=== PATIENT | male | born 1960 | race Caucasian/White ===

== ENCOUNTER 2016-09-15 10:12 | Day surgery (SDC) | payer OTHER ==
[~2016-09-15 10:12] MED LIST: KETOROLAC TROMETHAMINE 0.45% 4 DROP/0.4 ML DROPERETTE OD PRN
[2016-09-15] MEDS ORDERED: EPINEPHRINE INJ/PF 1 MG/1 ML AMPULE ONE ×2 (10:16→10:57)
[2016-09-15] MEDS ORDERED: LIDOCAINE 1% INJ-PF (10 MG/ML) 30 ML SDV ONE (10:17)
[2016-09-15] MEDS ORDERED: CHONDR SU A NA/HYALUR INTRAOC KIT (SURGICARE) ONE (10:17)
[2016-09-15] MEDS ORDERED: BUPIVACAINE HCL 0.75% INJ/PF (7.5 MG/1 ML) 10 ML SDV ONE (10:22)
[2016-09-15] MEDS ORDERED: HYALURONIDASE INJ 150 UNIT/1 ML VIAL ONE (10:23)
[2016-09-15] MEDS ORDERED: LIDOCAINE 2% INJ-PF (20 MG/ML) 10 ML AMPUL ONE (10:23)
[2016-09-15] MEDS: TETRACAINE HCL 0.5% OPH SOLN 2 ML OD PRN ×3 (10:33→11:23)
[2016-09-15] MEDS: TROPICAMIDE 1% OPH SOLN 3 ML OD PRN ×3 (10:34→10:52)
[2016-09-15] MEDS: CYCLOPENTOLATE 0.2%/PHENYLEPHRINE 1% OPH SOLN 2 ML OD PRN ×3 (10:35→10:53)
[2016-09-15] MEDS: BESIFLOXACIN HCL 0.6% OPH SUSP 5 ML BOTTLE OP PRN ×4 (10:36→12:50)
[2016-09-15] MEDS ORDERED: MIDAZOLAM 2 MG/2 ML INJ ONE (11:21)
[2016-09-15] MEDS ORDERED: FENTANYL CITRATE INJ/PF 100 MCG/2 ML AMPUL ONE (11:21)
[2016-09-15] MEDS ORDERED: PHENYLEPHRINE/KETOROLAC 1%-0.3% 4 ML VIAL ONE ×2 (11:32→11:36)
[2016-09-15] MEDS ORDERED: CHONDR SU A NA/HYALUR SOD 0.5 ML DISP.SYRIN ONE (11:52)
[2016-09-15] MEDS: TOBRAMYCIN SULFATE/DEXAMETH OPH OINTMENT 3.5 GM ONE ×2 (12:05→12:50)
--- NOTE | 2016-09-15 13:38 | [facility] OPERATIVE REPORT E ---
[facility] Operative Report NAME: KASIA VO AGE: 55Y DATE OF SURGERY: 09/15/2016 ROOM: PREOPERATIVE DIAGNOSES: 1. Cataract, right eye. 2. Miosis. POSTOPERATIVE DIAGNOSES: 1. Cataract, right eye. 2. Miosis. PROCEDURE: Complex cataract extraction with use of a Malyugin ring due to a very miotic pupil. SURGEON: JESSE PRIETO M.D. ANESTHESIA: Retrobulbar block of 2% lidocaine mixed with 0.7% Marcaine in a 50/50 mixture with Vitrase. PROCEDURE: After obtaining appropriate consent, the patient's right eye was prepped and draped in sterile fashion as well as the surgeon in a sterile manner and cataract surgery was started. First a paracentesis blade was used to make a small side-port incision. Viscoelastic was used to inflate the anterior chamber. Next a 2.4 mm incision was made with the paracentesis blade. A continuous capsulorrhexis incision was made using a cystotome and Utrata forceps. Following this hydrodissection was carried out to make the lens fully loose and mobile and it was rotated 90 degrees. Following this, a irpolq-hxo-kpwxyet technique was used to phacoemulsify the lens with a CDE of 3.83. The remaining cortex was removed with irrigation/aspiration. Provisc was instilled into the capsular bag to inflate the bag. A SN60WF, 19.5 diopter lens was placed. The remaining viscoelastic material was removed with irrigation/aspiration. Following this, a 10-0 nylon suture was used to close the incision and it was found to be watertight. Vigamox was instilled in the eye and a protective shield was placed over the eye. The patient returned to the postoperative recovery in stable condition. Prior to making the capsulorrhexis, a Malyugin ring was inserted due to a very miotic pupil. This was removed at the end of the case. DICTATING PHYSICIAN: JESSE PRIETO M.D. [id number] PHY#: [id number] ID: [id number] JOB#: [id number] ACCT: [id number] cc:JESSE PRIETO M.D. >
--- NOTE | 2016-09-15 13:39 | [facility] DISCHARGE SUMMARY E ---
[facility] Discharge Summary NAME: KASIA VO AGE: 55Y ADMITTED: 09/15/2016 DISCHARGED: 09/15/2016 HOSPITAL COURSE: This is a 55-year-old male who underwent complex cataract extraction with the use of a Malyugin ring. DIAGNOSIS: 1. Cataract, right eye. 2. Pupil miosis of the right eye. INDICATIONS: He underwent surgery because he was having difficulty driving at night due to decreased vision. DISCHARGE INSTRUCTIONS: He should be on a regular diet. No bending at his waist, no heavy lifting. We placed TobraDex ointment in the eye and a pressure patch, and he is leaving the pressure patch on until we see him in the office tomorrow. He will call with any problems. DICTATING PHYSICIAN: JESSE PRIETO M.D. [id number] PHY#: [id number] ID: [id number] JOB#: [id number] ACCT: [id number] cc:JESSE PRIETO M.D. >
== END 2016-09-15 12:46 | disposition home or self-care (01) ==
LOC: SC 10:12
PROVIDERS: ATTEND Internal Medicine
PROC: 08RJ3JZ Replacement of Right Lens with Synthetic Substitute, Percutaneous Approach (ICD-10-PCS; principal; 2016-09-15 11:00)
DX: H25.11 Age-related nuclear cataract, right eye (principal); H57.03 Miosis; Z96.1 Presence of intraocular lens; I10 Essential (primary) hypertension; Z79.899 Other long term (current) drug therapy
CPT/HCPCS: 66982; V2632; J2250; J3490 ×6; J0171; J3010; J3470; 142; C9447

== ENCOUNTER 2016-11-09 04:51 | Emergency (ER) | payer OTHER ==
--- NOTE | 2016-11-09 08:19 | ER Document Report ---
ED Extremity Problem, Upper - General Time seen by provider: 08:14 Mode of Arrival: Ambulatory Information source: Patient TRAVEL OUTSIDE OF THE [place] IN LAST 30 DAYS: No - HPI Patient complains to provider of: Pain, Left Onset: Other - see HPI note <ANJEL WOODY - Last Filed: 11/09/16 08:28> <HALRENAN - Last Filed: 11/09/16 15:06> - General Chief Complaint: Shoulder Pain Stated Complaint: LEFT ARM NUMBNESS Notes: Patient is a 55-year-old male presenting to the emergency department with complaints of shoulder pain. Patient states that he has had some pain in his left shoulder, trapezius muscles, and down his left arm. Patient states he has some diabetes and tingling into his elbow, index finger and thumb. Patient states he has had this pain for her about 2 weeks and has progressed in the last week. Patient has seen a chiropractor for this and was advised to get an MRI. Patient was also seen at urgent care for the same symptoms on Monday. Patient has been taking prednisone. Patient denies any injury. Patient states he has been doing light work at his job. Patient states that his pain was relieved when he got a shot of tramadol from the urgent care on Monday. However, patient's pain has returned. Patient is concerned about a metal plate in his jaw from the previous jaw surgery in 1985 and how this will affect his MRI. Patient requests pain medication since he does not want to have to keep taking off work for his pain. Patient has no known allergies. (ANJEL WODOY) - Related Data Allergies/Adverse Reactions: No Known Allergies Allergy (Verified 08/25/16 09:57) Past Medical History - General Information source: Patient - Social History Smoking Status: Never Smoker Cigarette use (# per day): No Chew tobacco use (# tins/day): No Frequency of alcohol use: None Drug Abuse: None Family History: None Patient has suicidal ideation: No Patient has homicidal ideation: No - Past Medical History Cardiac Medical History: Reports: Hx Hypercholesterolemia, Hx Hypertension Past Surgical History: Reports: Other - jaw sx '86 <ANJEL WOODY - Last Filed: 11/09/16 08:28> Review of Systems - Review of Systems Constitutional: No symptoms reported EENT: No symptoms reported Cardiovascular: No symptoms reported Respiratory: No symptoms reported Gastrointestinal: No symptoms reported Genitourinary: No symptoms reported Male Genitourinary: No symptoms reported Musculoskeletal: See HPI Skin: No symptoms reported Hematologic/Lymphatic: No symptoms reported Neurological/Psychological: See HPI, Numbness, Tingling -: Yes All other systems reviewed and negative <ANJEL WOODY - Last Filed: 11/09/16 08:28> Physical Exam - Vital signs Interpretation: Normal - General General appearance: Appears well, Alert - HEENT Head: Normocephalic, Atraumatic Eyes: Normal Pupils: PERRL Mucous membranes: Moist - Respiratory Respiratory status: No respiratory distress Chest status: Nontender Breath sounds: Normal Chest palpation: Normal - Cardiovascular Rhythm: Regular Heart sounds: Normal auscultation Murmur: No - Abdominal Inspection: Normal Distension: No distension Bowel sounds: Normal Tenderness: Nontender Organomegaly: No organomegaly - Back Back: Tender - spasm/tension to the trapezious muscles with some tenderness, tender to the rhomboid of the medial scapula, tender to the posterior cervical muscles on the left - Extremities General upper extremity: Other - When hyper-extending the neck to the left it causes pain in the elbow, index finger, and thumb of the left extremity General lower extremity: Normal inspection, Normal ROM, Normal strength - Neurological Neuro grossly intact: Yes Cognition: Normal Orientation: AAOx4 [place] Coma Scale Eye Opening: Spontaneous [place] Coma Scale Verbal: Oriented Gianni Coma Scale Motor: Obeys Commands [place] Coma Scale Total: 15 Speech: Normal - Psychological Associated symptoms: Normal affect, Normal mood - Skin Skin Temperature: Warm Skin Moisture: Dry <ANJEL WOODY - Last Filed: 11/09/16 08:28> Course <ANNALISEANJEL - Last Filed: 11/09/16 08:28> - Diagnostic Test Radiology reviewed: Image reviewed, Reports reviewed - MRI shows herniated disks at C5-6 and C6-7 that are likely causing this man's symptoms. <RENAN HONG - Last Filed: 11/09/16 15:06> - Re-evaluation Re-evalutation: 11/09/16 15:04 Patient reports the Percocet did not really help his pain. I informed him that that is not unusual and that the only thing that immediately seems to help his steroids, anti-inflammatory medications, and flexing the neck. (RENAN HONG) - Vital Signs Vital signs: Temp Pulse Resp BP Pulse Ox 97.4 F 88 18 140/85 H 94 11/09/16 04:56 11/09/16 04:56 11/09/16 04:56 11/09/16 04:56 11/09/16 04:56 Discharge <ANNALISEANJEL - Last Filed: 11/09/16 08:28> <RENAN HONG - Last Filed: 11/09/16 15:06> - Discharge Clinical Impression: Cervical radiculopathy at C6, Cervical radiculopathy at C7 Condition: Stable Disposition: HOME, SELF-CARE Additional Instructions: Herniated Disc: You have a herniated disc. A vertebral disc is a tissue "cushion" between the bones of the spine. When it herniates, a portion bulges out. If it pushes on a nerve, it can cause radiation of pain, numbness, weakness, or tingling in the area served by the affected nerve. Most herniated discs do NOT need surgery. In fact about one-quarter of normal, symptom-free people have at least one herniated disc. Symptoms will usually go away after a few weeks. Rest on a firm surface. Avoid lying on your stomach. If on your back, put a pillow under the knees. If on your side, bend your legs and put a pillow between the knees. Temporarily avoid bending, lifting, and other activity that increases pain. Depending on the severity of symptoms, we may prescribe antiinflammatory medicine such as ibuprofen, corticosteroids, muscle relaxers, or narcotic pain medication. Gentle heat may be used intermittently along the spine. Spinal manipulation or adjustment is usually not recommended for disk herniation. Exercises to strengthen your back and abdominal muscles are prescribed as your symptoms improve. Your doctor will advise you on the proper care at each stage in your recovery. You may be better in a few days -- or healing may take several weeks. Return or call the doctor if you develop severe unrelieved pain, increasing weakness or numbness, or loss of bowel or bladder control. START THE PREDNISONE TOMORROW. WEAR A SLING. DO NOT USE THE LEFT ARM. DO NOT EXTEND YOUR NECK TO LOOK UP. TAKE TYLENOL AND MOTRIN FOR PAIN. FOLLOW UP WITH A SPINE SURGEON--TAKE THE CD AND RADIOLOGY REPORT. RETURN TO THE EMERGENCY ROOM IF ANY NEW OR WORSENING SYMPTOMS. Prescriptions: Prednisone [Deltasone 10 mg Tablet] 10 mg PO ASDIR PRN #21 tablet PRN Reason: Scribe Attestation: 11/09/16 15:06 I personally performed the services described in the documentation, reviewed and edited the documentation which was dictated to the scribe in my presence, and it accurately records my words and actions. (RENAN HONG) Scribe Documentation - Scribe Written by Scribe:: Anjel Woody 11/09/16 8:34 acting as scribe for :: Hal <ANJEL WOODY - Last Filed: 11/09/16 08:28>
[2016-11-09] MEDS ORDERED: ONDANSETRON 4 MG TAB.RAPDIS PO ONE (10:03)
[2016-11-09] MEDS ORDERED: OXYCODONE-ACETAMINOPHEN 5-325 MG TABLET PO ONE (10:03)
[2016-11-09] MEDS ORDERED: KETOROLAC TROMETHAMINE 60 MG/2 ML SDV IM ONE (14:58)
[2016-11-09] MEDS ORDERED: PREDNISONE 20 MG TABLET PO ONE (14:59)
[2016-11-09 15:26] VITALS: BP 135/80
== END 2016-11-09 15:26 | disposition home or self-care (01) ==
LOC: ER 04:51
DX: M54.12 Radiculopathy, cervical region (principal); M25.512 Pain in left shoulder; E78.00 Pure hypercholesterolemia, unspecified; I10 Essential (primary) hypertension
CPT/HCPCS: 99284; 96372; 72141; J1885; S0119; J7512

== ENCOUNTER 2016-12-29 01:00 | Emergency (ER) | payer OTHER ==
[2016-12-29 01:27] VITALS: BP 126/72
== END 2016-12-29 02:49 | disposition left against medical advice (07) ==
LOC: ER 01:00
DX: Z53.21 Procedure and treatment not carried out due to patient leaving prior to being seen by health care provider (principal)

== ENCOUNTER 2016-12-29 10:35 | Emergency (ER) | payer OTHER ==
[2016-12-29 10:43] VITALS: BP 121/82
[2016-12-29] MEDS ORDERED: MAGNESIUM CITRATE 296 ML BOTTLE PO ONE (10:52)
--- NOTE | 2016-12-29 10:53 | ER Document Report ---
ED Medical Screen (RME) - General Chief Complaint: Constipation Stated Complaint: NECK PAIN Notes: This 56-year-old male patient had an anterior cervical fusion done 6 days ago. He reports. He had some yellow sputum, now the cough is mostly dry without much sputum. He is also been constipated due to the narcotics she is taking. He was concerned about the erythema noted to the neck wound. I have greeted and performed a rapid initial assessment of this patient. A comprehensive ED assessment and evaluation of the patient, analysis of test results and completion of the medical decision making process will be conducted by additional ED providers. TRAVEL OUTSIDE OF THE [place] IN LAST 30 DAYS: No - Related Data Allergies/Adverse Reactions: No Known Allergies Allergy (Verified 12/29/16 10:47) Past Medical History - Past Medical History Cardiac Medical History: Reports: Hx Hypercholesterolemia, Hx Hypertension Denies: Hx Heart Attack Pulmonary Medical History: Denies: Hx Asthma Neurological Medical History: Denies: Hx Cerebrovascular Accident, Hx Seizures Renal/ Medical History: Denies: Hx Peritoneal Dialysis GI Medical History: Denies: Hx Hepatitis, Hx Hiatal Hernia, Hx Ulcer Infectious Medical History: Denies: Hx Hepatitis Past Surgical History: Reports: Other - jaw sx '86. Denies: Hx Open Heart Surgery, Hx Pacemaker Physical Exam - Vital signs Vitals: Temp Pulse Resp BP Pulse Ox 97.7 F 110 H 16 121/82 97 12/29/16 10:38 12/29/16 10:38 12/29/16 10:38 12/29/16 10:38 12/29/16 10:38 Course - Vital Signs Vital signs: Temp Pulse Resp BP Pulse Ox 97.7 F 110 H 16 121/82 97 12/29/16 10:38 12/29/16 10:38 12/29/16 10:38 12/29/16 10:38 12/29/16 10:38
[2016-12-29 11:26] LABS: ABSOLUTE BASOPHILS # (AUTO) 0.1 10^3/uL (0.0-0.2); ABSOLUTE EOSINOPHILS # (AUTO) 0.2 10^3/uL (0.0-0.6); ABSOLUTE LYMPHOCYTES (AUTO) 2.1 10^3/uL (0.5-4.7); ABSOLUTE NEUT (AUTO) 7.4 10^3/uL (1.7-8.2); BASOPHILS % (AUTO) 0.8 % (0-2); EOSINOPHILS % (AUTO) 1.4 % (0-6); HEMATOCRIT 48.4 % (37.9-51.0); HEMOGLOBIN 16.8 g/dL (13.5-17.0); LYMPHOCYTES % (AUTO) 19.5 % (13-45); MEAN CORPUSCULAR HEMOGLOBIN 31.1 pg (27.0-33.4); MEAN CORPUSCULAR HGB CONC 34.6 g/dL (32.0-36.0); MEAN CORPUSCULAR VOLUME 90 fl (80-97); MONOCYTES % (AUTO) 9.5 % (3-13); RED BLOOD COUNT 5.39 10^6/uL (4.35-5.55); SEGMENTED NEUTROPHILS % (AUTO) 68.8 % (42-78); WHITE BLOOD COUNT 10.7 10^3/uL (4.0-10.5)
--- NOTE | 2016-12-29 11:47 | ER Document Report ---
ED General - General Chief Complaint: Constipation Stated Complaint: NECK PAIN Time seen by provider: 11:47 Mode of Arrival: Ambulatory Information source: Patient Notes: 56-year-old male presents to ED for redness to his surgical site. He had anterior cervical fusion 6 days ago. This site is clean dry and intact no signs of infection or inflammation. Patient also complains of constipation states he has not had any stools due to the narcotics he is taken for his surgery. While in the emergency room he has had a couple little round balls after he was given mag citrate in the front. TRAVEL OUTSIDE OF THE [place] IN LAST 30 DAYS: No - HPI Onset: Yesterday Onset/Duration: Gradual Quality of pain: Cramping - Abdominal Severity: Moderate Pain Level: 3 Associated symptoms: Other - Constipation and he is concerned about his surgical site. Exacerbated by: Movement, Walking Relieved by: Denies Similar symptoms previously: Yes Recently seen / treated by doctor: Yes - Related Data Allergies/Adverse Reactions: No Known Allergies Allergy (Verified 12/29/16 10:47) Past Medical History - General Information source: Patient - Social History Smoking Status: Never Smoker Cigarette use (# per day): No Chew tobacco use (# tins/day): No Smoking Education Provided: No Frequency of alcohol use: Occasional Drug Abuse: None Occupation: construction Lives with: Family Family History: CVA, DM, Hyperlipidemia, Hypertension Patient has suicidal ideation: No Patient has homicidal ideation: No - Past Medical History Cardiac Medical History: Reports: Hx Hypercholesterolemia, Hx Hypertension Pulmonary Medical History: Reports: None EENT Medical History: Reports: None Neurological Medical History: Reports: None Endocrine Medical History: Reports: None Renal/ Medical History: Reports: Hx Benign Prostatic Hyperplasia Malignancy Medical History: Reports None GI Medical History: Reports: Hx Hepatitis - Unsure what type, Hx Colonoscopy, Other - Umbilical hernia Musculoskeltal Medical History: Reports Hx Arthritis, Reports Hx Musculoskeletal Trauma - Fractured jaw and clavicle Skin Medical History: Reports None Psychiatric Medical History: Reports: None Traumatic Medical History: Reports: Hx Fractures - Clavicle and jaw Infectious Medical History: Reports: Hx Hepatitis Past Surgical History: Reports: Other - jaw sx Review of Systems - Review of Systems Constitutional: No symptoms reported EENT: No symptoms reported Cardiovascular: No symptoms reported Respiratory: No symptoms reported Gastrointestinal: Constipation Genitourinary: No symptoms reported Male Genitourinary: No symptoms reported Musculoskeletal: No symptoms reported Skin: Other - Ate he thinks his surgical site on the anterior neck is red site looks normal no redness noted Hematologic/Lymphatic: No symptoms reported Neurological/Psychological: No symptoms reported -: Yes All other systems reviewed and negative Physical Exam - Vital signs Vitals: Temp Pulse Resp BP Pulse Ox 97.7 F 110 H 16 121/82 97 12/29/16 10:38 12/29/16 10:38 12/29/16 10:38 12/29/16 10:38 12/29/16 10:38 Interpretation: Normal - General General appearance: Appears well, Alert - HEENT Head: Normocephalic, Atraumatic Eyes: Normal Pupils: PERRL - Respiratory Respiratory status: No respiratory distress Chest status: Nontender Breath sounds: Normal Chest palpation: Normal - Cardiovascular Rhythm: Regular Heart sounds: Normal auscultation Murmur: No - Abdominal Inspection: Normal Distension: Distended Bowel sounds: Hyperactive Tenderness: Tender Organomegaly: No organomegaly - Back Back: Normal, Nontender - Extremities General upper extremity: Normal inspection, Nontender, Normal color, Normal ROM , Normal temperature General lower extremity: Normal inspection, Nontender, Normal color, Normal ROM , Normal temperature, Normal weight bearing. No: Fany's sign - Neurological Neuro grossly intact: Yes Cognition: Normal Orientation: AAOx4 [place] Coma Scale Eye Opening: Spontaneous Gianni Coma Scale Verbal: Oriented [place] Coma Scale Motor: Obeys Commands [place] Coma Scale Total: 15 Speech: Normal Motor strength normal: LUE, RUE, LLE, RLE Sensory: Normal - Psychological Associated symptoms: Normal affect, Normal mood - Skin Skin Temperature: Warm Skin Moisture: Dry Skin Color: Normal Course - Re-evaluation Re-evalutation: 12/29/16 13:40 Patient had a large result from a soapsuds enema states he feels much better. He will be discharged home with azithromycin and instructions to use MiraLAX when he is taken narcotics. - Vital Signs Vital signs: Temp Pulse Resp BP Pulse Ox 97.7 F 110 H 16 121/82 97 12/29/16 10:38 12/29/16 10:38 12/29/16 10:38 12/29/16 10:38 12/29/16 10:38 - Laboratory Result Diagrams: 12/29/16 10:55 Laboratory results interpreted by me: 12/29/16 10:55 WBC 10.7 H - Diagnostic Test Radiology reviewed: Image reviewed, Reports reviewed Discharge - Discharge Clinical Impression: Constipation due to opioid therapy Pneumonia Qualifiers: Pneumonia type: due to unspecified organism Laterality: left Lung location: lower lobe of lung Qualified Code(s): J18.1 - Lobar pneumonia, unspecified organism Condition: Stable Disposition: HOME, SELF-CARE Additional Instructions: PNEUMONIA: Your examination indicates that you have pneumonia. This is an infection of the lung tissue, usually caused by bacteria or a virus. Symptoms include cough, fever, shaking chills, chest pain, shortness of breath, and coughing up bloody sputum. Treatment for bacterial pneumonia includes rest, antibiotics for 10 to 14 days, increasing your clear liquid intake, a cool mist humidifier at your bedside, and fever medication. Often, a repeat chest X-ray is performed in a few weeks--even if you feel better--to ascertain whether the infection has completely resolved and no underlying lung problem is present. You should call the physician if you develop persistent vomiting, high fever that does not respond to fever medication, increasing shortness of breath , confusion, or lethargy. Also, failure to improve within two to three days is an indication for re-examination. CONSTIPATION: Constipation is a common problem. It is especially likely as you get older. Constipation is a common cause of abdominal pain, but sometimes causes no symptoms at all. Causes of constipation include certain medications, dehydration, diets, inactivity, and low-fiber intake. Rarely, it can be a symptom of underlying disease. The physician has evaluated you for this. Avoid constipation by eating a diet high in fiber, fruits, and vegetables. Drink plenty of liquids. Get regular exercise. If possible, avoid constipating medicines like narcotic pain medication. Some vitamin tablets can cause constipation. Stool softeners may be needed for difficult cases. An excellent stool softener is Konsyl which is available at [facility], and [facility]. Just add a teaspoon to a glass of pineapple or orange juice daily or twice a day if needed. Laxatives are useful for occasional constipation. You should use them only when necessary. Too-frequent use can make your bowels dependent on them. Some over the counter laxatives available without prescription are: Milk of Magnesia, 1-2 tablespoons twice a day Dulcolax, 5 mg pill or 10 mg suppository. Citrate of Magnesia, 4-5 ounces a day for a day or two For acute constipation, Fleet's Enemas and Dulcolax suppositories are helpful. Chronic, volleyball commentator use of laxatives or enemas is not a good idea. Your bowel may become dependant on them. You do not need to have a bowel movement every day. Many people do fine with a bowel movement every three or four days. You should call your doctor or return for re-evaluation if you pass blood in the stool, or if you develop fever or increasing abdominal pain. BULK LAXATIVES: Bulk laxatives make the stool softer and bulkier. They're useful for preventing constipation. You can choose between psyllium, methylcellulose, and polycarbophil. They are available without a prescription. Psyllium brand names include Konsyl, Metamucil, Perdiem, Effer-Syllium and Hydrocil. It's available as powder, flavored drink powder, or chewable. The usual dose of psyllium powder is one heaping teaspoon in water each morning, increasing to twice a day if needed. Spade juice can disguise the slightly grainy texture. Methylcellulose is marketed as Citrucel and other brands. The average dose is two grams in a cup of water one to three times a day. Polycarbophil is marketed as Fiber-Con. Take two tablets with a cup of water one to three times a day. LAXATIVE: A laxative agent has been prescribed for your condition. This should result in passage of stool within 12 hours. Some mild intestinal cramping is common as the hard stool begins to move. You may have loose or runny stools for a short time. Contact your doctor if there is severe cramping, vomiting, or passage of blood. Return for further care if this medicine fails to improve your condition. AZITHROMYCIN: Azithromycin (Zithromax) is a broad spectrum antibiotic in the same class as erythromycin. It can treat a variety of bacterial infections, but is most frequently used for respiratory infections. Azithromycin is extremely long-lasting. It accumulates in body tissues and continues to kill bacteria for many days. In order to improve absorption, Azithromycin should be taken at least one hour before or two hours after a meal. It does not have the same strong tendency to upset the stomach as erythromycin and is usually very well tolerated. Patients who have had a rash or other true allergic reactions to erythromycin should not take this medication. Call if you develop gastrointestinal distress, severe diarrhea, rash, hives, itching, or shortness of breath. FOLLOW-UP CARE: If you have been referred to a physician for follow-up care, call the physician s office for an appointment as you were instructed or within the next two days. If you experience worsening or a significant change in your symptoms, notify the physician immediately or return to the Emergency Department at any time for re-evaluation. Prescriptions: Azithromycin [Zithromax 250 mg Tablet] 250 mg PO DAILY #4 tablet
[2016-12-29] MEDS ORDERED: AZITHROMYCIN 250 MG TABLET PO ONE (12:42)
== END 2016-12-29 13:48 | disposition home or self-care (01) ==
LOC: ER 10:35
DX: K59.03 Drug induced constipation (principal); T40.2X5A Adverse effect of other opioids, initial encounter; Z98.1 Arthrodesis status; I10 Essential (primary) hypertension; J18.1 Lobar pneumonia, unspecified organism
CPT/HCPCS: 99284; 36415; 85025; 74022; J3490

== ENCOUNTER 2017-03-29 20:58 | Emergency (ER) | payer OTHER ==
--- NOTE | 2017-03-30 00:32 | RADIOLOGY REPORT (SQ) ---
EXAM DESCRIPTION: U/S SCROTUM W/DOPPLER COMPLETED DATE/TIME: 03/30/2017 12:11 am REASON FOR STUDY: Testicle pain COMPARISON: None. TECHNIQUE: Static and realtime eaton scale imaging of the scrotum and testes. Selected color Doppler and spectral images recorded to document blood flow. LIMITATIONS: None. FINDINGS: RIGHT: TESTICLE: Normal size. Normal echotexture. Normal blood flow. No mass. EPIDIDYMIS: Normal. HYDROCELE OR VARICOCELE: Small hydrocele. HERNIA OR EXTRA-TESTICULAR MASS: No. OTHER: No other significant finding. A few incidental lymph nodes in the inguinal region. LEFT: TESTICLE: Normal size. Heterogenous echotexture. Normal blood flow. No focal mass. EPIDIDYMIS: Normal. HYDROCELE OR VARICOCELE: Moderate hydrocele. Possible small varicocele. HERNIA OR EXTRA-TESTICULAR MASS: No. OTHER: No other significant finding. A few incidental lymph nodes in the inguinal region. IMPRESSION: 1. HETEROGENOUS APPEARANCE OF THE LEFT TESTICLE. CURRENTLY NO EVIDENCE OF TORSION. HETEROGENEITY CO ULD BE DUE TO INFLAMMATION SUCH ORCHITIS. OTHER POSSIBILITIES INCLUDE PREVIOUS TORSION IN THE PAS T AND CANNOT COMPLETELY EXCLUDE MALIGNANT ETIOLOGY. 2. POSSIBLE SMALL LEFT VARICOCELE. SMALL HYDROCELES. 3. NO SIGNIFICANT FINDINGS ON THE RIGHT SIDE. NO FINDINGS IN THE SOFT TISSUES OF THE GROIN. TECHNICAL DOCUMENTATION: JOB ID: [id number]- All Rights Reserved
--- NOTE | 2017-03-30 00:50 | ER Document Report ---
ED General - General Chief Complaint: Groin Pain Stated Complaint: TESTICULAR PAIN Time Seen by Provider: 03/29/17 22:49 Notes: Patient is a 56-year-old male who presents with pain to the left testicle. Patient states when he was showering he noted several dilated veins of his left testicle that were painful to palpation which prompted him come to the emergency department. He denies any history of similar symptoms in the past. He has not seen his primary care doctor regarding these concerns. He denies any dysuria, penile discharge or concern for sexually transmitted infections. Denies any trauma to the testicle. He does note a dull, constant, aching pain to the veins over the left testicle. Touching area worsens the pain. Nothing improves the pain. TRAVEL OUTSIDE OF THE [place] IN LAST 30 DAYS: No - Related Data Allergies/Adverse Reactions: No Known Allergies Allergy (Verified 12/29/16 10:47) Past Medical History - General Information source: Patient - Social History Smoking Status: Never Smoker Frequency of alcohol use: Occasional Drug Abuse: None Lives with: Spouse/Significant other Family History: CVA, DM, Hyperlipidemia, Hypertension - Past Medical History Cardiac Medical History: Reports: Hx Hypercholesterolemia, Hx Hypertension Denies: Hx Heart Attack Pulmonary Medical History: Denies: Hx Asthma Neurological Medical History: Denies: Hx Cerebrovascular Accident, Hx Seizures Renal/ Medical History: Reports: Hx Benign Prostatic Hyperplasia. Denies: Hx Peritoneal Dialysis GI Medical History: Reports: Hx Hepatitis, Hx Colonoscopy. Denies: Hx Hiatal Hernia, Hx Ulcer Musculoskeltal Medical History: Reports Hx Arthritis, Reports Hx Musculoskeletal Trauma - Fractured jaw and clavicle Traumatic Medical History: Reports: Hx Fractures - Clavicle and jaw Infectious Medical History: Reports: Hx Hepatitis Past Surgical History: Reports: Other - jaw sx '86. Denies: Hx Open Heart Surgery, Hx Pacemaker Review of Systems - Review of Systems Notes: Constitutional: Negative for fever. HENT: Negative for sore throat. Eyes: Negative for visual changes. Cardiovascular: Negative for chest pain. Respiratory: Negative for shortness of breath. Gastrointestinal: Negative for abdominal pain, vomiting or diarrhea. Genitourinary: Negative for dysuria. Positive for left testicle pain Musculoskeletal: Negative for back pain. Skin: Negative for rash. Neurological: Negative for headaches, weakness or numbness. 10 point ROS negative except as marked above and in HPI. Physical Exam - Vital signs Vitals: Temp Pulse Resp BP Pulse Ox 98.1 F 80 20 133/91 H 95 03/29/17 21:11 03/29/17 21:11 03/29/17 21:11 03/29/17 21:11 03/29/17 21:11 Notes: PHYSICAL EXAMINATION: GENERAL: Well-appearing, well-nourished and in no acute distress. HEAD: Atraumatic, normocephalic. EYES: Pupils equal round and reactive to light, extraocular movements intact, sclera anicteric, conjunctiva are normal. ENT: nares patent, oropharynx clear without exudates. Moist mucous membranes. NECK: Normal range of motion, supple without lymphadenopathy LUNGS: Breath sounds clear to auscultation bilaterally and equal. No wheezes rales or rhonchi. HEART: Regular rate and rhythm without murmurs ABDOMEN: Soft, nontender, normoactive bowel sounds. No guarding, no rebound. No masses appreciated. Review: Several dilated veins over the left testicle. No epididymal tenderness or direct testicular tenderness on palpation. Positive cremasteric reflex bilaterally. No scrotal or penile lesions. EXTREMITIES: Normal range of motion, no pitting or edema. No cyanosis. NEUROLOGICAL: No focal neurological deficits. Moves all extremities spontaneously and on command. PSYCH: Normal mood, normal affect. SKIN: Warm, Dry, normal turgor, no rashes or lesions noted. Course - Re-evaluation Re-evalutation: 03/30/17 00:48 Patient presents with left testicular pain, has several dilated veins on the left testicle consistent with a varicocele confirmed on ultrasound. The left testicle is also noted to have inflammatory changes that are nonspecific but no evidence of torsion. He has no focal epididymal tenderness or testicular tenderness to suggest an acute epididymitis or orchitis. Positive cremasteric reflex bilaterally. I have encouraged patient to follow-up with urology for definitive management. At this time will discharge with return precautions and follow-up recommendations. Verbal discharge instructions given a the bedside and opportunity for questions given. Medication warnings reviewed. Patient is in agreement with this plan and has verbalized understanding of return precautions and the need for primary care follow-up in the next 24-72 hours. - Vital Signs Vital signs: Temp Pulse Resp BP Pulse Ox 97.9 F 72 20 120/84 95 03/30/17 01:07 03/30/17 01:07 03/30/17 01:07 03/30/17 01:07 03/30/17 01:07 - Diagnostic Test Radiology reviewed: Reports reviewed Discharge - Discharge Clinical Impression: Left varicocele, Testicular pain, left Condition: Good Disposition: HOME, SELF-CARE Additional Instructions: You have a varicocele which is a dilation of the veins of your left testicle. You need to follow-up with your urologist for definitive management which is often surgical. Return for worsening pain, vomiting, fever of greater than 101 F, or any other symptoms that are worrisome to you. Forms: Return to Work Referrals: QIAN BURGER MD [Primary Care Provider] - Follow up as needed VERNON BURNS MD [ACTIVE STAFF] - Follow up in 1 week
[2017-03-30 01:09] VITALS: BP 120/84
== END 2017-03-30 01:18 | disposition home or self-care (01) ==
LOC: ER 20:58
DX: I86.1 Scrotal varices (principal); N50.812 Left testicular pain; R10.30 Lower abdominal pain, unspecified
CPT/HCPCS: 76870; 93976; 99283

== ENCOUNTER → 2017-04-03 | Outpatient (CLI) | payer OTHER ==
--- NOTE | 2017-04-03 13:57 | RADIOLOGY REPORT (SQ) ---
EXAM DESCRIPTION: CERV SP 3 VIEW OR LESS COMPLETED DATE/TIME: 04/03/2017 10:50 am REASON FOR STUDY: CERVICAL RADICULOPATHY COMPARISON: None. NUMBER OF VIEWS: Two view. TECHNIQUE: Lateral views of the cervical spine with flexion and extension. LIMITATIONS: None. FINDINGS: MINERALIZATION: Normal. ALIGNMENT: Anatomic. FLEXION/EXTENSION: No instability. VERTEBRAE: Vertebral bodies of normal height. DISCS: Anterior osteophytes at C3-C4 and C4-C5. No significant osteophytes or sclerosis. Disc height maintained. LATERAL AND POSTERIOR ELEMENTS: Facets, lateral masses, and spinous processes without significant fin dings. HARDWARE: Anterior hardware and disc inserts at C5-C6 and C6-C7. SOFT TISSUES: No masses or calcifications. Lung apices clear. OTHER: No other significant finding. IMPRESSION: SURGICAL CHANGES WITH HARDWARE. NO INSTABILITY ON FLEXION/EXTENSION. TECHNICAL DOCUMENTATION: JOB ID: [id number] [employer]- All Rights Reserved
== END ==
LOC: RAD 10:01
PROVIDERS: ATTEND Specialist
DX: M54.12 Radiculopathy, cervical region (principal)
CPT/HCPCS: 72040